=== PATIENT | female | born 1975 | race American Indian/Alaskan Native ===

== ENCOUNTER 2019-03-30 10:10 | Emergency (ER) | payer OTHER ==
--- NOTE | 2019-03-30 12:01 | Emergency Department Report ---
Chief Complaint: Abdominal Pain Stated Complaint: LEFT SIDE PAIN, PREG - HPI History of Present Illness: 43 yo F presents to the ED from for evaluation of abdominal pain in . No vag bleeding. No dysuria. Patient went to because of LLQ abd / pelvic pain and thought it was lactose intolerance. Negative U/A. Positive Upreg. . - ROS Review of Systems: LLQ abd/pelv pain -dysuria, vag bleeding, discharge, fever - Exam Vital Signs: Vital Signs 03/30/19 10:26 Temperature 97.8 F Pulse Rate 107 H Respiratory 18 Rate Blood Pressure 155/89 O2 Sat by Pulse 100 Oximetry MSE screening note: Focused history and physical exam performed. Due to findings the following was ordered: Beta Quant OB Ultrasound Patient discussed with doctor:: THOMAS [facility]BER ED Disposition for MSE Condition: Stable Instructions: Abdominal Pain (ED)
[2019-03-30] MEDS ORDERED: ACETAMINOPHEN 500 MG TAB PO ONE (12:58)
--- NOTE | 2019-03-30 13:21 | Ultrasound Report ---
ULTRASOUND OB LESS THAN 14 WEEKS FETUS ULTRASOUND TRANSVAGINAL HISTORY: Left lower quadrant pelvic pain while TECHNIQUE: Transabdominal and transvaginal ultrasound with color Doppler imaging COMPARISON: None at this facility FINDINGS: The uterus measures 12.0 x 6.3 x 7.0 cm. Multiple uterine fibroids are identified ranging from 1 cm t o 4 cm in diameter. There are multiple nabothian cysts in the cervix. The cervix is closed. An intrauterine gestational sac containing a small yolk sac is identified. No convincing pole o r heart rate was visualized. Average gestational sac diameter measures 2.02 cm which correlates with a 6 week 6 day . No subchorionic hemorrhage is appreciated. The right ovary measures 3.0 x 2.5 x 2.7 cm. A 1.8 cm right ovarian hypodensity is identified which p robably represents a cyst. The left ovary measures 3.0 x 2.7 x 1.8 cm. No focal abnormality is appreciated. No pelvic fluid collection. IMPRESSION: An intrauterine gestational sac containing only a yolk sac is identified which correlates with a 6 we ek 6 day . No definitive pole or heart tones. Although this could represent a no rmal early , blighted ovum should be considered. Close interval follow-up is recommended. 1.8 cm right ovarian cyst. Moderate uterine fibroid disease. Signer Name: Bayron Anders Jr, MD Signed: 03/30/2019 1:16 PM Workstation Name: [id number]
[2019-03-30 13:35] LABS: Eosinophils % (Auto) 0.8 % (0.0-4.3); Hematocrit 32.8 % (30.3-42.9); Hemoglobin 10.9 gm/dl (10.1-14.3); Lymphocytes # (Auto) 1.6 K/mm3 (1.2-5.4); Lymphocytes % (Auto) 30.7 % (13.4-35.0); Mean Corpuscular HGB Conc 33 % (30-34); Mean Corpuscular Volume 78 fl (79-97); Monocytes # (Auto) 0.5 K/mm3 (0.0-0.8); Monocytes % (Auto) 9.2 % (0.0-7.3); Platelet Count 191 K/mm3 (140-440); Red Blood Count 4.22 M/mm3 (3.65-5.03); Red Cell Distribution Width 17.7 % (13.2-15.2)
[2019-03-30 14:02] LABS: Alanine Aminotransferase 12 units/L (7-56); Albumin 3.8 g/dL (3.9-5); BUN/Creatinine Ratio 12; Blood Urea Nitrogen 6 mg/dL (7-17); Calcium 9.3 mg/dL (8.4-10.2); Hemolysis Index 3
[2019-03-30 14:13] LABS: Bilirubin,Direct < 0.2 mg/dL (0-0.2)
[2019-03-30 14:35] LABS: Bilirubin,Urine NEG (Negative); Blood,Urine SM (Negative); Color,Urine Yellow (Yellow); Mucus,Urine FEW /HPF; Protein,Urine <15 mg/dL mg/dL (Negative); Urobilinogen,Urine < 2.0 mg/dL (<2.0)
--- NOTE | 2019-03-30 14:42 | Emergency Department Report ---
ED HPI - General Chief complaint: Abdominal Pain Stated complaint: LEFT SIDE PAIN, PREG Time Seen by Provider: 03/30/19 12:25 Source: patient Mode of arrival: Ambulatory Limitations: No Limitations - History of Present Illness Initial comments: This is a 43-year-old female nontoxic, well nourished in appearance, no acute signs of distress presents to the ED with c/o of left pelvic pain. Patient was sent by urgent care to r/o ectopic . Patient denies any knowledge of . Deneis any vaginal bleeding or upper abdominal pain. Patient describes vomiting as food content and yellow gastric acid. Patient describes pelvic pain as cramping and aching with level of 3/10. Patient denies chest pain, short of breath, fever, chills, headache, stiff neck, numbness or tingling. Patient denies any diarrhea or constipation. Patient denies any recent travels. Patient stated allergies to PCN. MD Complaint: other (left pelvic pain) -: days(s) Location: pelvis Radiation: none Severity: mild Severity scale (0 -10): 8 Quality: aching Consistency: constant Improves with: none Worsens with: none Associated symptoms: denies other symptoms. denies: nausea/vomiting, vaginal bleeding, vaginal discharge, abdominal pain, dysuria, headache, vision changes, malaise, dysparuenia, rash, seizure, shortness of breath, syncope, weakness Vaginal bleeding: none :: Yes Number of weeks : 6 Pre-vinod care: none - Related Data Previous Rx's Medication Instructions Recorded Last Taken Type 21/Iron Fu/Folic Acid 1 each PO DAILY #30 tablet 03/30/19 Unknown Rx [ Complete Caplet] Allergies Allergy/AdvReac Type Severity Reaction Status Date / Time Penicillins Allergy Hives Verified 03/30/19 12:00 ED Review of Systems ROS: Stated complaint: LEFT SIDE PAIN, PREG Other details as noted in HPI Constitutional: denies: chills, fever Eyes: denies: eye pain, eye discharge, vision change ENT: denies: ear pain, throat pain Respiratory: denies: cough, shortness of breath, wheezing Cardiovascular: denies: chest pain, palpitations Endocrine: no symptoms reported Gastrointestinal: denies: abdominal pain, nausea, diarrhea Genitourinary: denies: urgency, dysuria, discharge Musculoskeletal: denies: back pain, joint swelling, arthralgia Skin: denies: rash, lesions Neurological: denies: headache, weakness, paresthesias Psychiatric: denies: anxiety, depression Hematological/Lymphatic: denies: easy bleeding, easy bruising ED Past Medical Hx - Past Medical History Hx Hypertension: Yes Hx Asthma: Yes - Surgical History Hx Cholecystectomy: Yes - Social History Smoking Status: Never Smoker - Medications Home Medications: Home Medications Medication Instructions Recorded Confirmed Last Taken Type 21/Iron Fu/Folic Acid 1 each PO DAILY #30 tablet 03/30/19 Unknown Rx [ Complete Caplet] ED Physical Exam - General Limitations: No Limitations General appearance: alert, in no apparent distress - Head Head exam: Present: atraumatic, normocephalic - Neck Neck exam: Present: normal inspection, full ROM. Absent: tenderness, meningismus, lymphadenopathy - GI/Abdominal GI/Abdominal exam: Present: soft, normal bowel sounds. Absent: distended, tenderness, guarding, rebound, rigid, diminished bowel sounds - Extremities Exam Extremities exam: Present: normal inspection, full ROM - Back Exam Back exam: Present: normal inspection, full ROM. Absent: tenderness, CVA tenderness (R), CVA tenderness (L), muscle spasm, paraspinal tenderness, verteb ral tenderness, rash noted - Neurological Exam Neurological exam: Present: alert, oriented X3, normal gait - Psychiatric Psychiatric exam: Present: normal affect, normal mood - Skin Skin exam: Present: warm, dry, intact, normal color. Absent: rash ED Course Vital Signs 03/30/19 03/30/19 03/30/19 10:26 13:05 13:06 Temperature 97.8 F Pulse Rate 107 H Respiratory 18 18 16 Rate Blood Pressure 155/89 O2 Sat by Pulse 100 Oximetry - Reevaluation(s) Reevaluation #1: 03/30/19 14:40 Patient is speaking in full sentences with no signs of distress noted. ED Medical Decision Making - Lab Data Result diagrams: 03/30/19 13:19 03/30/19 13:19 - Medical Decision Making This is a 43-year-old female that presents with pain during . Patient is stable and was examined by me. There is no abdominal tenderness. Negative signs of symptoms of appendicitis. Labs obtained. UA obtained. US OB obtained and dictated by the radiologist. Patient is notified of the report with no questions noted by the patient. Vital signs are stable prior to discharge. Patient was also instructed to Follow-up with a OBGYN doctor in 3-5 days or if symptoms worsen and continue return to emergency room as soon as possible. At time of discharge, the patient does not seem toxic or ill in appearance. No acute signs of distress noted. Patient agrees to discharge treatment plan of care. No further questions noted by the patient. Critical care attestation.: If time is entered above; I have spent that time in minutes in the direct care o f this critically ill patient, excluding procedure time. ED Disposition Clinical Impression: Pelvic pain during Qualifiers: Weeks of gestation: less than 8 weeks Qualified Code(s): Z3A.01 - Less than 8 weeks gestation of Disposition: - TO HOME OR SELFCARE Is pt being admited?: No Does the pt Need Aspirin: No Condition: Stable Instructions: (ED) Additional Instructions: Follow-up with a OBGYN doctor in 3-5 days or if symptoms worsen and continue return to emergency room as soon as possible. Prescriptions: 21/Iron Fu/Folic Acid [ Complete Caplet] 1 each PO DAILY #30 tablet Referrals: BALDEMAR WALTER MD [Primary Care Provider] - 3-5 Days FRANNY FORBES MD [Staff Physician] - 3-5 Days [facility] [Provider Group] - 3-5 Days Forms: Work/School Release Form(ED)
[2019-03-30 15:07] VITALS: BP 126/87
== END 2019-03-30 15:07 | disposition home or self-care (01) ==
LOC: ED 10:10
DX: O26.891 Other specified pregnancy related conditions, first trimester (principal); R10.2 Pelvic and perineal pain; O10.911 Unspecified pre-existing hypertension complicating pregnancy, first trimester; Z90.49 Acquired absence of other specified parts of digestive tract; Z79.899 Other long term (current) drug therapy; Z88.0 Allergy status to penicillin; Z3A.01 Less than 8 weeks gestation of pregnancy
CPT/HCPCS: 36415; 76801; 76817; 80048; 80076; 81001; 84702; 85025